=== PATIENT | male | born 1955 | race Caucasian/White ===

== ENCOUNTER 2022-05-25 09:03 | Outpatient (REF) | payer MEDICARE, SELFPAY ==
[2022-05-25 12:14] LABS: Creatinine Urine 209.03 mg/dL; Microalbum/Creatinine Ratio Ur 7.1 ug/mg cr
[2022-05-25 14:18] LABS: Aspartate Amino Transferase 24 U/L (5-37); Blood Urea Nitrogen 14 mg/dL (9-16); Calcium 9.8 mg/dL (8.4-10.2); Chloride 102 mmol/L (96-108); Estimated Glomerular Filt Rate > 60; Glucose Fasting 137 mg/dL (60-99); Potassium 4.4 mmol/L (3.3-5.1); Sodium 141 mmol/L (135-145)
[2022-05-25 14:36] LABS: Alanine Aminotransferase 28 U/L (0-40); Anion Gap 19 (12-20); Carbon Dioxide 24 mmol/L (22-29); Cholesterol 215 mg/dL; HDL Cholesterol 59 mg/dL; LDL Cholesterol Calculated 137 mg/dl; Triglycerides 95 mg/dL
[2022-05-25 14:47] LABS: PSA,Total (Free>4and<10) 0.41 ng/mL (0.00-4.00)
== END 2022-05-25 09:04 | disposition home or self-care (01) ==
LOC: HO.HMGCLDS 09:03
PROVIDERS: PCP Internal Medicine; Visit Provider Internal Medicine
DX: E11.9 Type 2 diabetes mellitus without complications (principal); E78.5 Hyperlipidemia, unspecified; Z12.5 Encounter for screening for malignant neoplasm of prostate
CPT/HCPCS: 36415; 80048; 80061; 82043; 84153; 84450; 84460

== ENCOUNTER 2022-07-12 08:58 | Outpatient (REF) | payer MEDICARE, SELFPAY ==
[2022-07-13 09:02] LABS: C Peptide 2.33 ng/mL (0.80-3.85)
== END 2022-07-12 08:59 | disposition home or self-care (01) ==
LOC: HO.HMGCLDS 08:58
PROVIDERS: PCP Internal Medicine; Visit Provider Internal Medicine
DX: E11.9 Type 2 diabetes mellitus without complications (principal)
CPT/HCPCS: 36415; 84681

== ENCOUNTER 2022-08-25 06:30 | Outpatient (REF) | payer MEDICARE, SELFPAY ==
[2022-08-25 11:55] LABS: Estimated Average Glucose 111 mg/dL; Hemoglobin A1c % 5.5 %
[2022-08-25 11:57] LABS: Alanine Aminotransferase 34 U/L (0-40); Aspartate Amino Transferase 23 U/L (5-37); Cholesterol 191 mg/dL; HDL Cholesterol 59 mg/dL; LDL Cholesterol Calculated 111 mg/dl; Triglycerides 109 mg/dL
== END 2022-08-25 06:31 | disposition home or self-care (01) ==
LOC: HO.HMGCLDS 06:30
PROVIDERS: PCP Internal Medicine; Visit Provider Internal Medicine
DX: E11.9 Type 2 diabetes mellitus without complications (principal); E78.5 Hyperlipidemia, unspecified
CPT/HCPCS: 36415; 80061; 82550; 83036; 84450; 84460

== ENCOUNTER 2023-05-01 10:44 | Outpatient (AMB) | payer BC, SELFPAY ==
[2023-05-01 11:06] VITALS: BP 122/76; PULSE 93; O2SAT 99; BMI 23.2
--- NOTE | 2023-05-01 11:06 | A.OFFPC_ITS ---
Vital Signs 05/01/23 11:06 Height 6 ft Weight 171 lb 4 oz BMI 23.2 BP 122/76 Blood Pressure Location Rt brachial Position Sitting Pulse 93 Pulse Source Pulse Oximeter Pulse Oximetry (%) 99 Oxygen Delivery Method Room Air Intake Visit Reasons: Annual PE Intake Note: Pt is here for his Annual PE. Allergies No Known Allergies Allergy (Verified 05/01/23 11:46) Medication List - Last Reconciled 05/01/23 by Tsering Munoz MD blood sugar diagnostic (FreeStyle Lite Strips) Check blood sugar once daily before meals Tobacco use date assessed: 05/01/23 Fall risk assessment: No Falls in past year Last assessed Fall Risk: 05/01/23 Dental Screening Dental Screen Date: 05/01/23 Did you have a dental problem in the last 6 months where you did not have access to dental care?: No Was dental information given to patient?: No HPI Annual PE HPI Details 67-year-old male with diabetes mellitus, history of dyslipidemia, here today for his physical exam patient currently not on any medications at present time and controlled is blood sugar levels and cholesterol through diet and exercise. Has changed his eating habits and is now consuming a being diet exclusively, and has been exercising regularly. He has been feeling well with no complaints at present time. [facility] Medical History (Updated 05/01/23 @ 17:41 by Tsering Munoz MD) Consumes a vegan diet Controlled diabetes mellitus type II without complication Dyslipidemia Tubular adenoma of colon Surgical History (Updated 05/01/23 @ 17:41 by Tsering Munoz MD) No pertinent past surgical history Family History Father Non-Hodgkins lymphoma Psoriasis Paternal Uncle Non-Hodgkins lymphoma Social History (Updated 05/01/23 @ 17:45 by Tsering Munoz MD) Housing: House Alcohol intake: former Patient Tobacco Use Status: Former Tobacco user Tobacco use type: Cigar e-Cigarette/Vaping Use: Never Used service: No Current occupational status: retired Cognitive needs: No Hearing needs: No Vision needs: Yes Questionnaire PHQ-9 Over the last 2 weeks, how often have you been bothered by any of the following problems? 1. Little interest or pleasure in doing things: not at all 2. Feeling down, depressed, or hopeless: not at all 3. Trouble falling or staying asleep, or sleeping too much: not at all 4. Feeling tired or having little energy: not at all 5. Poor appetite or overeating: not at all 6. Feeling bad about yourself - or that you are a failure or have let yourself or your family down: not at all 7. Trouble concentrating on things, such as reading the newspaper or watching television: not at all 8. Moving or speaking so slowly that other people could have noticed. Or the opposite - being so fidgety or restless that you have been moving around a lot more than usual: not at all 9. Thoughts that you would be better off or of hurting yourself in some way: not at all Total score: 0 Depression Screening Interpretation: Negative 83012 - PHQ-9 Billing: Yes Source: Developed by Drs. Victoriano Mcghee, Josefina Escobar, Chavez Francis and colleagues, with an educational ana from [employer]. Thrive Questionnaire Date Thrive assessed: 05/01/23 I am a: Patient What is your living situation today?: I have a steady place to live Within the past 12 months, did the food you bought not last and you didn't have the money to get more?: Never true Within the past 12 months, did you worry whether your food would run out before you got money to buy more?: Never true Do you have trouble paying for medicines?: No Do you have trouble getting transportation to medical appointments?: No Do you have trouble paying your heating and electricity bill?: No Do you have trouble taking care of your child, family member or friend?: No Do you have trouble with day-to-day activities such as bathing, preparing meals, shopping, managing finances, etc.?: No Are you currently unemployed and looking for a job?: No Are you interested in more education?: No AUDIT C Alcohol Use Questionnaire (AUDIT-C) 1. How often do you have a drink containing alcohol?: Never (former) 2. How many drinks containing alcohol do you have on a typical day when you are drinking?: 1 or 2 3. How often do you have six or more drinks on one occasion?: Never Total Score: 0 Score Reviewed/Action Taken: Yes TAYE-7 AMB Questionnaire TAYE-7 Date TAYE - 7 assessed: 09/15/22 Source: Developed by Drs. Victoriano Mcghee, Josefina Escobar, Chavez Francis and colleagues, with an educational ana from [employer]. Review of Systems Const Denies body aches, Denies fatigue, Denies fever(s), Denies headache(s) and Denies weakness Eyes Denies change in vision ENT Denies dizziness, Denies headache(s), Denies nasal congestion and Denies nasal discharge Card Denies chest pain, Denies lightheadedness, Denies palpitations and Denies dyspnea Resp Denies chest congestion, Denies cough, Denies dyspnea and Denies wheezing GI Denies abdominal pain, Denies change in bowel habits and Denies heartburn Denies hematuria, Denies difficulty urinating, Denies dysuria, Denies urinary frequency and Denies urinary urgency Musc Reports no additional complaints Skin/Breast Denies lesions and Denies rash Neuro Denies dizziness, Denies headache(s) and Denies weakness Psych Reports no additional complaints Endo Denies fatigue, Denies polydipsia, Denies polyuria and Denies palpitations Meng/Lymph Denies easy bruising Aller/Immun Denies seasonal rhinorrhea and Denies wheezing Physical exam (Primary Care) Vital Signs: Last Vital Signs Pulse 93 05/01/23 11:06 BP 122/76 05/01/23 11:06 Pulse Ox 99 05/01/23 11:06 Oxygen Delivery Method Room Air 05/01/23 11:06 BMI result Body Mass Index 23.2 Tobacco/Smoking Status: Tobacco use Status Tobacco use date assessed 05/01/23 05/01/23 11:07 Patient Tobacco Use Status Current everyday Tobacco 05/01/23 11:07 Tobacco use type Cigar 05/01/23 11:07 e-Cigarette/Vaping Use Never Used 05/01/23 11:07 Depression Screening Interpretation: Negative Thrive Assessment: Date of Thrive Assessment Date Thrive assessed 05/25/22 05/01/23 11:07 Const Other: Alert oriented x3 no acute distress noted Orientation/consciousness: patient oriented x3 HENMT Ears: hearing grossly normal bilaterally, external ears normal and EAC's normal General nose exam: Normal external nose present and No nasal discharge present Mouth: Normal oral and palatal mucosa present, oropharynx normal and moist mucous membranes Eyes General: appearance normal, both eyes and all related structures Eyelids: Yes eyelids normal Conjunctivae: conjunctivae normal Pupils: Equal, round and reactive pupils present EOM: EOMs intact bilaterally Neck Neck: Yes full ROM, Yes no lymphadenopathy and Yes supple Chest Chest palpation & inspection: normal inspection of the chest and normal palpation of entire chest wall Resp Effort & Inspection: normal respiratory effort and able to speak in complete sentences Auscultation: clear to auscultation bilaterally Cardio Rate: regular rate Rhythm: regular rhythm Heart sounds: S1 normal heart sound present and S2 normal heart sound present GI Palpation (GI): Soft to palpation, nontender, no guarding and no masses Male General Exam: Yes normal external exam Back/Spine/Pelvis Cervical Spine: normal cervical lordosis and cervical ROM normal Thoracic/Lumbar Spine: thoracic and lumbar spine normal to inspection and thoraco-lumbar ROM normal Skin General skin exam: no rashes or lesions noted Neuro General: patient oriented x3, gait normal, tone normal, moves all extremities, Normal light touch and pain sensation and CN's II-XI intact bilaterally Cranial nerves: Yes Equal, round and reactive pupils present Extrem General: Yes full ROM, Yes no joint enlargement, Yes no clubbing, cyanosis or edema, Yes no calf tenderness and Yes normal gait Psych Appearance: grossly normal Mental Status: mental status grossly normal Speech and movement: Normal speech and movement present Affect: normal affect Attitude: cooperative Thought process: Normal thought process present Thought content: Normal thought content present Immunizations pneumoc 20-fabrice conj-dip cr(PF) Performing Provider: Tsering Munoz MD Administered by: Melo Brock CMA on 05/01/23 12:14 Dose Route Admin Location Lot Number Expiration Date NDC [employer] 0.5 mL IM Right Deltoid [id number] 07/11/24 5025-2075-70 [employer] VIS Given Date VIS Provided VIS Publication Date 05/01/23 Single Vaccine 21 Eligibility Eligibility Date Funding Source Not [facility] Eligible 05/01/23 Private Assessment and Plan Assessment & Plan (1) Dyslipidemia: Code(s): E78.5 - Hyperlipidemia, unspecified Plan: Continue with adhering to healthy eating habits and getting regular exercise, fasting lipid panel ordered (2) Controlled diabetes mellitus type II without complication: Code(s): E11.9 - Type 2 diabetes mellitus without complications Plan: Hemoglobin A1c, basic metabolic panel and urine for microalbuminuria screening ordered. Date with his eye exam. Continue with adhering to healthy eating habits and getting regular exercise. Prevnar 20 given today, reminded to get his flu shot yearly (3) Annual visit for general adult medical examination with abnormal findings: Code(s): Z00.01 - Encounter for general adult medical examination with abnormal findings Plan: Will check appropriate labs. Recommended dental visit every 6 months and regular eye exams once a year for diabetes eye screen.. Take adequate calcium in diet and vitamin-D 3 at 2000 IU per cap once a day, in addition to weight- bearing exercises to help maintain good muscle tone and weight control. Instructed to do self-testicular exam check for any mass. Prevnar 20 given today, reminded to get yearly flu vaccine get COVID booster. He is up-to-date with screening colonoscopy due again in 2028 (4) Screening for prostate cancer: Code(s): Z12.5 - Encounter for screening for malignant neoplasm of prostate Plan: Ordered PSA level (5) Consumes a vegan diet: Code(s): Z78.9 - Other specified health status Plan: Will check vitamin B12 vitamin-D level and hemoglobin hematocrit (6) Need for pneumococcal 20-valent conjugate vaccination: Code(s): Z23 - Encounter for immunization Plan: Prevnar 20 given today Orders: Orders Vitamin B12 and Folate Today E11.9 - Type 2 diabetes mellitus without complications, E78.5 - Hyperlipidemia, unspecified, Z00.01 - Encounter for general adult medical examination with abnormal findings, Z78.9 - Other specified health status Comprehensive Arnett. Panel Fast Today E11.9 - Type 2 diabetes mellitus without complications, E78.5 - Hyperlipidemia, unspecified, Z00.01 - Encounter for general adult medical examination with abnormal findings, Z12.5 - Encounter for screening for malignant neoplasm of prostate Hemoglobin A1c Today E11.9 - Type 2 diabetes mellitus without complications, E78.5 - Hyperlipidemia, unspecified, Z00.01 - Encounter for general adult medical examination with abnormal findings, Z12.5 - Encounter for screening for malignant neoplasm of prostate Lipid Panel Today E11.9 - Type 2 diabetes mellitus without complications, E78.5 - Hyperlipidemia, unspecified, Z00.01 - Encounter for general adult medical examination with abnormal findings, Z12.5 - Encounter for screening for malignant neoplasm of prostate PSA,Total (Free>4and<10) Today E11.9 - Type 2 diabetes mellitus without complications, E78.5 - Hyperlipidemia, unspecified, Z00.01 - Encounter for general adult medical examination with abnormal findings, Z12.5 - Encounter for screening for malignant neoplasm of prostate Vitamin D 25-OH Total Today E11.9 - Type 2 diabetes mellitus without complications, E78.5 - Hyperlipidemia, unspecified, Z00.01 - Encounter for general adult medical examination with abnormal findings, Z12.5 - Encounter for screening for malignant neoplasm of prostate Microalbumin, Random (w Creat) Today E11.9 - Type 2 diabetes mellitus without complications, E78.5 - Hyperlipidemia, unspecified, Z00.01 - Encounter for general adult medical examination with abnormal findings, Z12.5 - Encounter for screening for malignant neoplasm of prostate Hemoglobin and Hematocrit Today E11.9 - Type 2 diabetes mellitus without complications, E78.5 - Hyperlipidemia, unspecified, Z00.01 - Encounter for general adult medical examination with abnormal findings, Z12.5 - Encounter for screening for malignant neoplasm of prostate Pneumococcal 20 Immunization Today Z23 - Encounter for immunization Coding Level of Care Code Est Pt Prev Care >65y(28265) Diagnoses Dyslipidemia E78.5 Controlled diabetes mellitus type II without complication E11.9 Annual visit for general adult medical examination with abnormal findings Z00.01 Screening for prostate cancer Z12.5 Consumes a vegan diet Z78.9 Need for pneumococcal 20-valent conjugate vaccination Z23
== END 2023-05-01 12:31 | disposition home or self-care (01) ==
PROVIDERS: PCP Internal Medicine; Visit Provider Internal Medicine
DX: Z00.00 Encounter for general adult medical examination without abnormal findings (principal); E11.9 Type 2 diabetes mellitus without complications; E78.5 Hyperlipidemia, unspecified; Z23 Encounter for immunization
CPT/HCPCS: 90471; 90677; 99397

== ENCOUNTER 2023-05-02 06:51 | Outpatient (REF) | payer BC, SELFPAY ==
[2023-05-02 11:32] LABS: Hematocrit 40.4 % (42.0-52.0); Hemoglobin 14.1 g/dl (14.0-18.0)
[2023-05-02 11:40] LABS: Estimated Average Glucose 108 mg/dL; Hemoglobin A1c % 5.4 % (<6.0); Microalbum/Creatinine Ratio Ur 5.1 ug/mg cr (<30)
[2023-05-02 11:59] LABS: Alanine Aminotransferase 25 U/L (0-40); Albumin Level 4.5 g/dL (3.5-5.0); Alkaline Phosphatase 46 U/L (39-117); Anion Gap 14 (12-20); Aspartate Amino Transferase 25 U/L (5-37); Bilirubin Total 0.8 mg/dL (0.0-1.0); Blood Urea Nitrogen 11 mg/dL (9-16); Calcium 9.8 mg/dL (8.4-10.2); Carbon Dioxide 26 mmol/L (22-29); Chloride 105 mmol/L (96-108); Cholesterol 205 mg/dL (<200); Estimated Glomerular Filt Rate > 60; Glucose Fasting 108 mg/dL (60-99); HDL Cholesterol 63 mg/dL (>40); LDL Cholesterol Calculated 116 mg/dL (<100); Potassium 4.3 mmol/L (3.3-5.1); Sodium 141 mmol/L (135-145); Triglycerides 130 mg/dL (<150)
[2023-05-02 12:00] LABS: PSA,Total (Free>4and<10) 0.44 ng/mL (0.00-4.00)
[2023-05-02 12:03] LABS: Vitamin D 25-OH Total 55.7 ng/mL (>30)
[2023-05-02 12:15] LABS: Folate 14.1 ng/mL (> or = 4.0); Vitamin B12 601 pg/mL (200-900)
== END 2023-05-02 06:52 | disposition home or self-care (01) ==
LOC: HO.HMGCLDS 06:51
PROVIDERS: PCP Internal Medicine; Visit Provider Internal Medicine
DX: E78.5 Hyperlipidemia, unspecified (principal); E11.9 Type 2 diabetes mellitus without complications; Z00.01 Encounter for general adult medical examination with abnormal findings; Z12.5 Encounter for screening for malignant neoplasm of prostate
CPT/HCPCS: 36415; 80053; 80061; 82043; 82306; 82607; 82746; 83036; 84153; 85014; 85018

== ENCOUNTER 2024-08-21 08:18 | Outpatient (REF) | payer BC, SELFPAY ==
[2024-08-21 13:33] LABS: Estimated Average Glucose 123 mg/dL; Hemoglobin A1C 144.5151 umol/L; Hemoglobin A1c % 5.9 % (<6.0); Total Hemoglobin (HGBA1C) 3521.6836 umol/L
[2024-08-21 13:53] LABS: Creatinine Urine 145.15 mg/dL; Microalbum/Creatinine Ratio Ur 6.2 ug/mg cr (<30)
[2024-08-21 13:56] LABS: Alanine Aminotransferase 30 U/L (0-40); Anion Gap 14 (12-20); Aspartate Amino Transferase 30 U/L (5-37); Blood Urea Nitrogen 11 mg/dL (9-16); Carbon Dioxide 28 mmol/L (22-29); Chloride 102 mmol/L (96-108); Cholesterol 214 mg/dL (<200); Estimated Glomerular Filt Rate > 60; Glucose Fasting 128 mg/dL (60-99); HDL Cholesterol 62 mg/dL (>40); LDL Cholesterol Calculated 123 mg/dL (<100); Potassium 4.3 mmol/L (3.3-5.1); Sodium 140 mmol/L (135-145); Triglycerides 146 mg/dL (<150)
[2024-08-21 14:05] LABS: PSA,Total (Free>4and<10) 0.57 ng/mL (0.00-4.00)
[2024-08-21 14:14] LABS: Vitamin D 25-OH Total 34.4 ng/mL (>30)
== END 2024-08-21 08:19 | disposition home or self-care (01) ==
LOC: HO.HMGCLDS 08:18
PROVIDERS: PCP Internal Medicine; Visit Provider Internal Medicine
DX: Z00.01 Encounter for general adult medical examination with abnormal findings (principal); E78.5 Hyperlipidemia, unspecified; E11.9 Type 2 diabetes mellitus without complications; Z12.5 Encounter for screening for malignant neoplasm of prostate
CPT/HCPCS: 36415; 80048; 80061; 82043; 82306; 82570; 83036; 84153; 84450; 84460; 96127

== ENCOUNTER 2024-08-21 08:18 | Outpatient (AMB) | payer BC, SELFPAY ==
--- NOTE | 2024-08-21 08:24 | MHC.PC.OV ---
Vital Signs 08/21/24 08:35 Height 6 ft Weight 179 lb BMI 24.3 BP 132/70 Blood Pressure Location Lt brachial Position Sitting Pulse 88 Pulse Source Pulse Oximeter Pulse Oximetry (%) 98 Oxygen Delivery Method Room Air Intake Visit Reasons: PE Intake Note: Pt is here today for his PE:Last colonoscopy 02/27/19: Pt has an appt next week for his colonoscopy Allergies No Known Allergies Allergy (Verified 08/21/24 08:48) Medication List - Last Reconciled 08/21/24 by Tsering Munoz MD blood sugar diagnostic (FreeStyle Lite Strips) Check blood sugar once daily before meals lancets (FreeStyle Lancets) test blood sugar once a day Tobacco use date assessed: 08/21/24 Fall risk assessment: No Falls in past year Last assessed Fall Risk: 08/21/24 Dental Screening Dental Screen Date: 08/21/24 Did you have a dental visit in the last 12 months?: Yes Did you have a dental problem in the last 6 months where you did not have access to dental care?: No Was dental information given to patient?: Patient has dentist HPI PE HPI Details - The patient is a 68-year-old male presenting for his physical examination and management of chronic conditions. - Type 2 Diabetes Mellitus: Diagnosed previously, with the last HbA1c noted at 6di.1% Patient manages diabetes through diet control and has lost significant weight, from 215 lbs to about 175 lbs -negative for urine microalbuminuria - Diastasis Recti: Present, self-reports no symptoms except occasional discomfort and sensation of pressure when doing sit-ups. - Heartburn: Occasionally experiences discomfort, linked to certain foods like marinara sauce. No medications reported for symptom management. 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 No severe functional limitation currently. - Cataracts: Beginning in the both eyes, goes to [facility] , seen this year, without current complications; no retinopathy according to recent exams. - scheduled foa repeat screening colonoscopy on 08/28/[address] Jamison. - up to date with all vaccines , but declined Covid booster or RSV . - has cerumen impaction, no hearing deficits, patient sometimes using Waterpik to flush ears. [facility] Medical History (Updated 12/11/24 @ 09:26 by Tsering Munoz MD) Hx of adenomatous polyp of colon Tubular adenoma of colon Dyslipidemia Controlled diabetes mellitus type II without complication Surgical History No pertinent past surgical history Family History Father Non-Hodgkins lymphoma Psoriasis Paternal Uncle Non-Hodgkins lymphoma Social History Housing: House Alcohol intake: former Patient Tobacco Use Status: Former Tobacco user Tobacco use type: Cigar e-Cigarette/Vaping Use: Never Used service: No Current occupational status: retired Cognitive needs: No Hearing needs: No Vision needs: Yes Questionnaire PHQ-9 Over the last 2 weeks, how often have you been bothered by any of the following problems? 1. Little interest or pleasure in doing things: not at all 2. Feeling down, depressed, or hopeless: not at all 3. Trouble falling or staying asleep, or sleeping too much: not at all 4. Feeling tired or having little energy: not at all 5. Poor appetite or overeating: not at all 6. Feeling bad about yourself - or that you are a failure or have let yourself or your family down: not at all 7. Trouble concentrating on things, such as reading the newspaper or watching television: not at all 8. Moving or speaking so slowly that other people could have noticed. Or the opposite - being so fidgety or restless that you have been moving around a lot more than usual: not at all 9. Thoughts that you would be better off or of hurting yourself in some way: not at all Total score: 0 Depression Screening Interpretation: Negative Depression Screening Done: Yes 83746 - PHQ-9 Billing: Yes Source: Developed by Drs. Victoriano Mcghee, Josefina Escobar, Chavez Francis and colleagues, with an educational ana from [employer]. Thrive Questionnaire Date Thrive assessed: 08/16/24 I am a: Patient What is your living situation today?: I have a steady place to live Within the past 12 months, did the food you bought not last and you didn't have the money to get more?: Never true Within the past 12 months, did you worry whether your food would run out before you got money to buy more?: Never true Do you have trouble paying for medicines?: No Do you have trouble getting transportation to medical appointments?: No Do you have trouble paying your heating and electricity bill?: No Do you have trouble taking care of your child, family member or friend?: No Do you have trouble with day-to-day activities such as bathing, preparing meals, shopping, managing finances, etc.?: No Are you currently unemployed and looking for a job?: No Are you interested in more education?: No Please select the resources that you would like help with: None Currently or been in a relationship where the following occur: No concerns reported THRIVE Score: 0 AUDIT C Alcohol Use Questionnaire (AUDIT-C) 1. How often do you have a drink containing alcohol?: Monthly or less 2. How many drinks containing alcohol do you have on a typical day when you are drinking?: 1 or 2 3. How often do you have six or more drinks on one occasion?: Never Total Score: 1 TAYE-7 AMB Questionnaire TAYE-7 Date TAYE - 7 assessed: 09/15/22 Feeling nervous, anxious, or on edge: 0 = Not at all Not being able to stop or control worryin = Not at all Worrying too much about different things: 0 = Not at all Trouble relaxin = Not at all Being so restless that it is hard to sit still: 0 = Not at all Becoming easily annoyed or irritable: 0 = Not at all Feeling afraid as if something awful might happen: 0 = Not at all Total TAYE-7 score (0-4 normal; 5-9 mild; 10-14 moderate; 15-21 severe): 0 Source: Developed by Drs. Victoriano Mcghee, Josefina Escobar, Chavez Francis and colleagues, with an educational ana from [employer]. TAYE-7 Assessment Billing TAYE-7 Assessment Tool: TAYE-7 Assessment 87601 Review of Systems Const Denies body aches, Denies fatigue, Denies fever(s), Denies headache(s) and Denies weakness Eyes Details: goes to [facility] , [facility] with retinopathy screening Denies change in vision ENT Denies dizziness, Denies headache(s), Denies nasal congestion and Denies nasal discharge Card Denies chest pain, Denies lightheadedness, Denies palpitations and Denies dyspnea Resp Denies chest congestion, Denies cough, Denies dyspnea and Denies wheezing GI Denies abdominal pain, Denies change in bowel habits and Denies heartburn Denies hematuria, Denies difficulty urinating, Denies dysuria, Denies urinary frequency and Denies urinary urgency Musc Reports no additional complaints Skin/Breast Denies lesions and Denies rash Neuro Denies dizziness, Denies headache(s) and Denies weakness Psych Reports no additional complaints Endo Denies fatigue, Denies polydipsia, Denies polyuria and Denies palpitations Meng/Lymph Denies easy bruising Aller/Immun Denies seasonal rhinorrhea and Denies wheezing Physical exam (Primary Care) Vital Signs: Last Vital Signs Pulse 88 08/21/24 08:35 BP 132/70 08/21/24 08:35 Pulse Ox 98 08/21/24 08:35 Oxygen Delivery Method Room Air 08/21/24 08:35 BMI result Body Mass Index 24.3 Tobacco/Smoking Status: Tobacco use Status Tobacco use date assessed 08/21/24 08/21/24 08:36 Patient Tobacco Use Status Former Tobacco user 08/21/24 08:25 Tobacco use type Cigar 08/21/24 08:25 e-Cigarette/Vaping Use Never Used 08/21/24 08:25 PHQ-9: PHQ-9 Score PHQ-9: Total score 0 08/21/24 08:49 Depression Screening Interpretation: Negative Thrive Assessment: Date of Thrive Assessment Date Thrive assessed 08/16/24 08/21/24 08:25 Currently or been in a relationship where the following occur: No concerns reported Results AMB Hemoglobin A1c AMB Hemoglobin A1c 6.1 % Last Edit by Sigrid Heredia CMA on 08/21/24 08:57 Results Reviewed Results Reviewed: Laboratory Last Values Hgb A1c (Clinic) 6.1 % (4.0-6.0) H 08/21/24 08:48 Coding Level of Care Code Est Pt Prev Care >65y(37168) Diagnoses Controlled diabetes mellitus type II without complication E11.9 Dyslipidemia E78.5 Annual visit for general adult medical examination with abnormal findings Z00.01 Additional Codes PHQ-9 - 20137 - PHQ-9 Billing: Yes ([id number]) TAYE-7 Assessment Billing - TAYE-7 Assessment Tool: TAYE-7 Assessment 63035 ([id number]) Assessment & Plan Assessment & Plan (1) Controlled diabetes mellitus type II without complication: Code(s): E11.9 - Type 2 diabetes mellitus without complications Category: Medical (2) Dyslipidemia: Code(s): E78.5 - Hyperlipidemia, unspecified Category: Medical (3) Annual visit for general adult medical examination with abnormal findings: Code(s): Z00.01 - Encounter for general adult medical examination with abnormal findings Orders: Orders AMB Hemoglobin A1c Today E11.9 - Type 2 diabetes mellitus without complications PSA,Total (Free>4and<10) Today E11.9 - Type 2 diabetes mellitus without complications, E78.5 - Hyperlipidemia, unspecified, Z00.01 - Encounter for general adult medical examination with abnormal findings, Z12.5 - Encounter for screening for malignant neoplasm of prostate Microalbumin, Random (w Creat) Today E11.9 - Type 2 diabetes mellitus without complications, E78.5 - Hyperlipidemia, unspecified, Z00.01 - Encounter for general adult medical examination with abnormal findings, Z12.5 - Encounter for screening for malignant neoplasm of prostate Basic Metabolic Panel Fasting Today E11.9 - Type 2 diabetes mellitus without complications, E78.5 - Hyperlipidemia, unspecified, Z00.01 - Encounter for general adult medical examination with abnormal findings, Z12.5 - Encounter for screening for malignant neoplasm of prostate Alanine Aminotransferase Today E11.9 - Type 2 diabetes mellitus without complications, E78.5 - Hyperlipidemia, unspecified, Z00.01 - Encounter for general adult medical examination with abnormal findings, Z12.5 - Encounter for screening for malignant neoplasm of prostate Vitamin D 25-OH Total Today E11.9 - Type 2 diabetes mellitus without complications, E78.5 - Hyperlipidemia, unspecified, Z00.01 - Encounter for general adult medical examination with abnormal findings, Z12.5 - Encounter for screening for malignant neoplasm of prostate Lipid Panel Today E11.9 - Type 2 diabetes mellitus without complications, E78.5 - Hyperlipidemia, unspecified, Z00.01 - Encounter for general adult medical examination with abnormal findings, Z12.5 - Encounter for screening for malignant neoplasm of prostate Hemoglobin A1c Today E11.9 - Type 2 diabetes mellitus without complications, E78.5 - Hyperlipidemia, unspecified, Z00.01 - Encounter for general adult medical examination with abnormal findings, Z12.5 - Encounter for screening for malignant neoplasm of prostate Aspartate Amino Transferase Today E11.9 - Type 2 diabetes mellitus without complications, E78.5 - Hyperlipidemia, unspecified, Z00.01 - Encounter for general adult medical examination with abnormal findings, Z12.5 - Encounter for screening for malignant neoplasm of prostate
[2024-08-21 08:35] VITALS: BP 132/70; PULSE 88; O2SAT 98; BMI 24.3
--- OUTSIDE RECORDS SUMMARY | 2024-08-21 23:02 | XMS_ITS | Patient Health Record ---
Author Organization [facility] Address [address] [place] [address] Care Team Providers Care Customer Accounts Advisor Name Role Phone Tammy VEGAS, Tsering Primary Care Provider Victoriano Hodgson Unavailable [phone] ALLERGIES No Known Allergies REASON FOR REFERRAL No Information IMMUNIZATIONS Vaccine Route Administration Date Status Comme nts Influenza Unknown 06/27/2018 Administered SOCIAL HISTORY Tobacco Use: Social History Observation Description Date Details (start date - stop date) Former Smoker NA - NA Sex Assigned At : Social History Observation Description Sex Assigned At Unknown Tobacco Use/Smoking Question Answer Notes Patient is a former smoker How long has it been since you last smoked? 1-5 years Alcohol Screen Question Answer Notes Did you have a drink contain ing alcohol in the past year? Yes How often did you have a dri nk containing alcohol in the past year? 4 or more times a week (4 points) How many drinks did you have on a typical day when you were drinking in the past year? 1 or 2 drinks (0 point) How often did you have 6 or more drinks on one occasion in the past year? Weekly (3 points) Points 7 Interpretation Positive PROBLEMS Problem Type ICD Code Onset Dates Problem Status W/U Status Risk SNOMED Code Notes Problem Encounter for screening for malignant neoplasm of colon (Z12.11) Active confirmed 262299351 Problem Hx of adenomatous colonic polyps (Z86.010) Active confirmed 533760182 Problem Pre-procedural examination (Z01.818) Active confirmed 442458349318400 VITAL SIGNS Blood pressure diastolic 00 mm Hg 05/16/2024 Height 72 in 05/16/2024 Blood pressure systolic 00 mm Hg 05/16/2024 Weight 172 lbs 05/16/2024 BMI 23.32 kg/m2 05/16/2024 Encounters Encounter Location Date Provider Diagnosis [facility] [address] [place] [address] 05/16/2024 Victoriano Jamison Hx of adenomatous colonic polyps Z86.010 ; Pre-procedural examination Z01.818 and Encounter for screening for malignant neoplasm of colon Z12.11 ASSESSMENTS Encounter Date Diagnosis Assessment Notes Treatment Notes Treatment Clinical Notes 05/16/2024 Hx of adenomatous colonic polyps (ICD-10 - Z86.010) 05/16/2024 Pre-procedural examination (ICD-10 - Z01.818) 05/16/2024 Encounter for screening for malignant neoplasm of colon (ICD-10 - Z12.11) PLAN OF TREATMENT Future Test Test Name Order Date COLONOSCOPY 11/15/2012 COLONOSCOPY 11/20/2018 COLONOSCOPY 05/16/2024 Next Appt Details Provider Name:Victoriano Rudd Jamison , 08/28/2024 08:30:00 AM, [address] [facility] , [place], [place], [phone], Insurance Providers Payer Name Payer Address Payer Phone Subscriber Number Group Number Insured Name Patient Relationship to Insured Coverage Start Date Coverage End Date [facility] [address] [place] [address] [id number] TYRA ENGLISH Self - patient is the insured MEDICAL (GENERAL) HISTORY Medical History History ICD Code Hx of tubular adenoma and hy perplastic polyps-removed in 01/2008, 01/2013, and 02/2019 Diverticulosis Internal hemorrhoids Denies [place],CVA,Lung disease,renal disease Diet-controlled diabetes Surgical History Surgery Date(Month/Year) Vasectomy
--- OUTSIDE RECORDS SUMMARY | 2024-08-21 23:02 | XMS_ITS ---
Author Organization [facility] Address [address] [place] [address] Care Team Providers Care Business Development Intern Name Role Phone Tammy VEGAS, Tsering Primary Care Provider Victoriano Hodgson [phone] ALLERGIES No Known Allergies REASON FOR VISIT Patient presents today for a recall colonoscopy SOCIAL HISTORY Tobacco Use: Social History Observation [...] Weekly (3 points) Points 7 Interpretation Positive VITAL SIGNS BMI 23.32 kg/m2 05/16/2024 Blood pressure systolic 00 mm Hg 05/16/20 24 Blood pressure diastolic 00 mm Hg 024 Height 72 in 05/16/2024 Weight 172 lbs 05/16/2024 Encounters Encounter Location Date Provider Diagnosis [facility] [address] [place] [phone] 05/16/2024 Victoriano Jamison Hx of adenomatous colonic [...] Future Test Test Name Order Date COLONOSCOPY 05/16/2024 Next Appt Details Follow Up: prn, Reason: Provider Name:Victoriano Jamison , 08/28/2024 08:30:00 AM, [address] [place] [address], [phone], Progress Notes * Examination Category Sub-Category Detail Notes General Examination GENERAL APPEARANCE: pleasant , well nourished, well developed, in no acute distress EYES: sclera non-icteric NECK/THYROID: no cervical lymphade nopathy, neck supple HEART: S1, S2 normal LUNGS: clear to auscultatio n bilaterally ABDOMEN: normal bowel sounds, no guarding or rigidity, no hepatosplenomegaly, no masses palpable, soft, nontender, nondistended. NEUROLOGIC: alert and oriented SKIN: nonjaundiced, no spi moises angiomata. EXTREMITIES: no edema ORAL CAVITY: mucosa moist
== END 2024-08-21 09:22 | disposition home or self-care (01) ==
PROVIDERS: PCP Internal Medicine; Visit Provider Internal Medicine
DX: E11.9 Type 2 diabetes mellitus without complications (principal)

== ENCOUNTER 2024-08-28 06:14 | Day surgery (SDC) | payer MEDICARE, SELFPAY ==
[2024-08-26 13:23] VITALS: BMI 23.3
--- NOTE | 2024-08-27 12:54 | HO.ANESPROP2 ---
Documented by User: Tiffany Da Silva NP 08/27/24 12:55 HPI - Anesthesia Eval Consult details Narrative: 68yo M for Colonoscopy PMF Active Problems Active Problems: All Active Problems Hx of adenomatous polyp of colon (Acute) Dyslipidemia (Acute) Controlled diabetes mellitus type II without complication (Acute) Past Medical History Medical History Diverticulosis Hx of adenomatous polyp of colon Tubular adenoma of colon Dyslipidemia Controlled diabetes mellitus type II without complication Family History Family History Father Non-Hodgkins lymphoma Psoriasis Paternal Uncle Non-Hodgkins lymphoma Surgical History Surgical History H/O colonoscopy Hx of vasectomy Social History Social History Household Members: Spouse Housing: House Alcohol intake: former Patient Tobacco Use Status: Former Tobacco user Tobacco use type: Cigar e-Cigarette/Vaping Use: Never Used Use of substances other than those prescribed or required for medical reasons: No Are you DNR?: No Advance Directives: No Advance Directives Information Provided: Yes Nutrition Risks: No Nutritional Risk Poor oral hygiene: No service: No Current occupational status: retired Cognitive needs: No Hearing needs: No Vision needs: Yes Meds Allergies Allergy/AdvReac Type Severity Reaction Status Date / Time No Known Allergies Allergy Verified 08/21/24 08:48 Exam Height,Weight and Vital Signs: Height 6 ft Weight 78.018 kg Assessment and Plan Assessment Anesthesia Assessment: Chart Reviewed Documented by User: Antonia Nassar MD 08/28/24 07:38 PMFSH Past Medical History Medical History Diverticulosis Hx of adenomatous polyp of colon Tubular adenoma of colon Dyslipidemia Controlled diabetes mellitus type II without complication Family History Family History Father Non-Hodgkins lymphoma Psoriasis Paternal Uncle Non-Hodgkins lymphoma Family history of problems with anesthesia: No Surgical History Surgical History H/O colonoscopy Hx of vasectomy History of Problems with Anesthesia: No Social History Social History Household Members: Spouse Housing: House Alcohol intake: former Patient Tobacco Use Status: Former Tobacco user Tobacco use type: Cigar e-Cigarette/Vaping Use: Never Used Use of substances other than those prescribed or required for medical reasons: No Are you DNR?: No Advance Directives: No Advance Directives Information Provided: Yes Nutrition Risks: No Nutritional Risk Poor oral hygiene: No service: No Current occupational status: retired Cognitive needs: No Hearing needs: No Vision needs: Yes Meds Allergies Allergy/AdvReac Type Severity Reaction Status Date / Time No Known Allergies Allergy Verified 08/21/24 08:48 Exam Airway Mallampati Class: II TM Dist: >3cm Neck ROM: Full Heart: rrr Lungs: cta Assessment and Plan Assessment Anesthesia Assessment: Anesthesia Plan Discussed Final Anesthetic Review Family History of Problems with Anesthesia: No History of Problems with Anesthesia: No NPO: Yes ASA Class: II Final Preanesthetic Review: No Changes in Pt Med Stat, Meds/Allgs Chart Reviewed, Consent Obtained/Reviewed and Anes Risks/Benef Reviewed Patient Risk: Intermediate Procedure Risk: Low Anesthetic Plan Anesthetic Plan: MAC: Disposition: Standard PACU
--- OUTSIDE RECORDS SUMMARY | 2024-08-28 06:16 | XMS_ITS ---
Author Organization [facility] Address [address] [place] [address] Care Team Providers Care Business Developer Name Role Phone Tammy VEGAS, Tsering Primary Care Provider Victoirano Hodgson [phone] REASON FOR VISIT screening,hx polyps Encounters Encounter Location Date Provider Diagnosis [facility] [place] [address] [place] [id number] 08/28/2024 Victoriano Jamison PLAN OF TREATMENT Next Appt Details Provider Name:Victoirano Jamison , 08/28/2024 07:30:00 AM, [address] [place] [address], [phone],
--- OUTSIDE RECORDS SUMMARY | 2024-08-28 06:16 | XMS_ITS | Patient Health Record ---
Author Organization [facility] Address [address] [place] [address] Care Team Providers Care Mail Service Coordinator Name Role Phone Tammy VEGAS, Tsering Primary Care Provider Victoriano Hodgson Unavailable [phone] ALLERGIES No Known Allergies REASON FOR REFERRAL [...] malignant neoplasm of colon (Z12.11) Active confirmed 425776093 Problem Hx of adenomatous colonic polyps (Z86.010) Active confirmed 570055318 Problem Pre-procedural examination (Z01.818) Active confirmed [id number] VITAL SIGNS Blood pressure diastolic 00 mm Hg 05/16/2024 Height 72 in 05/16/2024 Blood pressure systolic 00 mm Hg 05/16/2024 Weight 172 lbs 05/16/2024 BMI 23.32 kg/m2 05/16/2024 Encounters Encounter Location Date Provider Diagnosis [facility] [place] [address] [place] [id number] 08/28/2024 Victoriano Jamison [facility] [address] [place] [address] 05/16/2024 Victoriano Jamison Hx of adenomatous colonic [...] 05/16/2024 Next Appt Details Provider Name:Victoriano Rudd Jmaison , 08/28/2024 07:30:00 AM, [address] [place] [address] , [place], [place], [phone], Insurance Providers Payer Name Payer Address Payer Phone Subscriber Number Group Number Insured Name Patient Relationship to Insured Coverage Start Date Coverage End Date [facility] [address] [place] [address] [phone] [id number] TYRA ENGLISH Self - patient is the insured MEDICAL (GENERAL) HISTORY Medical History History ICD Code Hx of tubular adenoma and hy perplastic polyps-removed in 01/2008, 01/2013, and 02/2019 Diverticulosis Internal hemorrhoids Denies CT,CVA,Lung disease,renal disease Diet-controlled diabetes Surgical History Surgery Date(Month/Year) Vasectomy
--- OUTSIDE RECORDS SUMMARY | 2024-08-28 06:16 | XMS_ITS ---
Author Organization [facility] Address [address] [place] [address] Care Team Providers Care Dolly Operator Name Role Phone Tammy VEGAS, Tsering Primary Care Provider Victoriano Hodgson [phone] ALLERGIES No Known Allergies REASON FOR VISIT [...] 05/16/2024 Encounters Encounter Location Date Provider Diagnosis [facility] [address] [place] [phone] 05/16/2024 Victoriano Jamison Hx of adenomatous colonic [...] prn, Reason: Provider Name:Victoriano Jamison , 08/28/2024 07:30:00 AM, [address] [place] [address], [phone], Progress Notes * Examination Category Sub-Category Detail [...]
[2024-08-28 06:40] VITALS: BMI 23.7
[2024-08-28 06:45] VITALS: BP 159/82; PULSE 90; RESP 16; TEMP 37; O2SAT 98
[2024-08-28 07:07] LABS: Glucose, Whole Blood 152 mg/dL (60-115)
[2024-08-28] MEDS: Lactated Ringers 1,000 ML 100 ML IVCONT (07:07)
[2024-08-28 08:40] VITALS: BP 89/51; PULSE 75; RESP 16; TEMP 36.1; O2SAT 95
--- NOTE | 2024-08-28 08:45 | PM.OP ---
Brief Operative Note Date of Service: 08/28/24 Pre-op diagnosis: Screening Post-op diagnosis: other (Polyp) Procedure: Colonoscopy to the cecum with cold snare polypectomy x 1 Surgeon: Victoriano Jamison MD Anesthesia: MAC Was an [employer] Wireman used for this Procedure?: No Estimated blood loss (mL): 2.0 Pathology: other (A. Ascending colon polyp) Condition: stable Disposition: PACU
[2024-08-28 08:55] VITALS: BP 111/61; PULSE 82; RESP 16; TEMP 36.2; O2SAT 97
--- NOTE | 2024-08-28 09:04 | OP_ITS ---
DATE OF SERVICE: 08/28/2024 SURGEON: Victoriano Jamison MD INDICATIONS: The patient presents for evaluation of colorectal cancer screening and personal history of tubular adenomas of the colon. Full consent has been obtained from him for this, including risks of bleeding and perforation. PREOPERATIVE DIAGNOSIS: POSTOPERATIVE DIAGNOSIS: PROCEDURE PERFORMED: Colonoscopy to cecum with cold snare polypectomy. ESTIMATED BLOOD LOSS: COMPLICATIONS: ANESTHESIA: Medication used, monitored anesthesia care. ASSISTANTS: SPECIMENS: PREOPERATIVE DIAGNOSES: Colorectal cancer screening and personal history of tubular adenoma of the colon. POSTOPERATIVE DIAGNOSES: Colorectal cancer screening and personal history of tubular adenoma of the colon, colon polyp, diverticulosis, and internal hemorrhoids. DESCRIPTION OF PROCEDURE: The patient was placed in the left lateral decubitus position. The digital rectal exam revealed no abnormalities. The Olympus video pediatric colonoscope was entered into the rectum and advanced easily to the cecum. Once in the cecum, I did identify normal-appearing cecal pouch with appendiceal orifice and a normal-appearing ileocecal valve. The entire cecum was well visualized and appeared normal. There was transillumination of light deep in the right lower quadrant. The scope was slowly withdrawn assessing all mucosal surfaces carefully. Preparation was excellent. The ascending colon was a flat, but raised approximately 5 or 6 mm polyp, which was removed by cold snare polypectomy, recovered by suction. The polypectomy site appeared clean, without any sign of residual polyp nor significant bleeding. I did not visualize any other polyps, colitis, nor angiodysplasia. There was a moderate amount of sigmoid diverticulosis. In the rectum, scope was retroflexed visualizing internal hemorrhoids, but no other pathology. A small portion of the rectum was difficult to visualize due to some retained stool which was irrigated and suctioned away as best as possible. The scope was straightened and withdrawn from the patient. He tolerated the procedure well and was returned to the recovery area in stable condition. IMPRESSION: 1. Small colon polyp. 2. Diverticulosis. 3. Internal hemorrhoids. PLAN: The results of the pathology will be checked. I would recommend a repeat colonoscopy in 5 years for further screening and surveillance. He will otherwise see me on a p.r.n. basis. This has been discussed with his . MD TOO Cacerse/JAIMEL / [id number]
== END 2024-08-28 09:17 | disposition home or self-care (01) ==
PROVIDERS: PCP Internal Medicine; Visit Provider Internal Medicine
PROC: 0DJD8ZZ Inspection of Lower Intestinal Tract, Via Natural or Artificial Opening Endoscopic (ICD-10-PCS; CPT 45378; principal; 2024-08-28 07:30)
DX: Z12.11 Encounter for screening for malignant neoplasm of colon (principal); Z86.0101 Personal history of adenomatous and serrated colon polyps; D12.2 Benign neoplasm of ascending colon; K57.30 Diverticulosis of large intestine without perforation or abscess without bleeding; K64.8 Other hemorrhoids; E11.9 Type 2 diabetes mellitus without complications; Z87.891 Personal history of nicotine dependence
CPT/HCPCS: 45385; 82947; 88305; J2003; J2250; J2704

== ENCOUNTER 2025-08-26 08:02 | Outpatient (AMB) | payer BC, SELFPAY ==
--- OUTSIDE RECORDS SUMMARY | 2024-08-28 02:30 | XMS_ITS ---
Author Organization [facility] Address [address] [place] [address] Care Team Providers Care Communication Engineer Name Role Phone Tammy VEGAS, Tsering Primary Care Provider Victoriano Hodgson [phone] REASON FOR VISIT screening,hx polyps Problems Problem Type SNOMED Code ICD Code Onset Dates Problem Status W/U Status Risk Notes Problem Diverticular disease of colon (353686772) Diverticulosis of large intestine without perforation or abscess without bleeding (K57.30) Active confirmed Encounters Encounter Location Date Provider Diagnosis [facility] [place] [address] [place] [id number] 08/28/2024 Victoriano Jamison Colon cancer scree ramirez Z12.11 ; Diverticulosis of large intestine without perforation or abscess without bleeding K57.30 and Other hemorrhoids K64.8 Assessments Encounter Date Diagnosis (ICD Code) Assessment Notes Treatment Notes Treatment Clinical Notes Section Notes 08/28/2024 Colon cancer screening (ICD-10 - Z12.11) 08/28/2024 Diverticulosis of large intestine without perforation or abscess without bleeding (ICD-10 - K57.30) 08/28/2024 Other hemorrhoids (ICD-10 - K64.8) Plan Of Treatment No Information Progress Notes * TYRA ENGLISH ADOB:1955 (69 yo M)Acc No.[id number]:08/28/2024 COLON WITH MAC Patient: Blaire LINK TYRA Downing Provider: Luana Jamison MD :1955 A ge:68 Y S ex:Male Date:08/28/2024 Address:[address] [place] [address] Pcp:Tsering Munoz MD Subjective: * Chief Complaints: * S creening,hx polyps Assessment: * Assessment: 1. C olon cancer screening - Z12.11 (Primary) 2 . D iverticulosis of large intestine without perforation or abscess without bleeding - K57.30 3 . O ther hemorrhoids - K64.8 Plan: * Procedure Codes: 4 5385 LESION REMOVAL COLONOSCOPY, Modifiers: PT 0529F INTRVL 3+YRS PTS CLNSCP [id number] RCMND FLW-UP 10 YRS DOCD, Modifiers: 1P Billing Information: * Procedure Codes: 48337 LESION REMOVAL COLONOSCOPY. Modifiers: PT 0529F INTRVL 3+YRS PTS CLNSCP DOCD. 0528F RCMND FLW-UP 10 YRS DOCD. Modifiers: 1P * The named appointment provid er may or may not be the originator of this progress note, and it is not deemed complete until electronically signed by the appointment provider. Sign off status: Pending * Provider: Luana Jamison MD Date: 10/29/2023 Generated for Sharona teran/Rupa/Annetteitting on: 10/27/2024 08:13 AM EST
--- OUTSIDE RECORDS SUMMARY | 2025-08-26 08:14 | XMS_ITS | Patient Health Record ---
Author Organization [facility] Address [address] [place] [address] Care Team Providers Care Upstream Biomanufacturing Technician Name Role Phone Tammy VEGAS, Tsering Primary Care Provider Victoriano Hodgson Unavailable [phone] Allergies No Known Allergies Results Component Value Reference Range Flag Notes Glucose, Whole Blood Reviewed date:08/28/2024 01:49:08 PM Interpretation: Performing Lab:[facility], [address] [place] [phone] Notes/Report: Glucose, Whole Blood 152 60-115 mg/dL H VT TER #: [id number] Pathology Reviewed date:12/12/2024 10:57:56 AM Interpretation: Performing Lab:[facility], [address] [place] [phone] Notes/Report: Reason For Referral No Information Immunizations Vaccine Route Administration Date Status Comme nts Influenza Unknown 06/27/2018 Administered Social History Tobacco Use: Social History Observation Description Date Details (start date - stop date) Former Smoker NA - NA Social History Drugs/Alcohol: Social Info Question Answer Notes Alcohol Screen Did you have a drink containing alcohol in the past year? Yes How often did you have a drink containing alcohol in the past year? 4 or more times a week (4 points) How many drinks did you have on a typical day when you were drinking in the past year? 1 or 2 drinks (0 point) How often did you have 6 or more drinks on one occasion in the past year? Weekly (3 points) Points 7 Interpretation Positive Tobacco Use: Social Info Question Answer Notes Tobacco Use/Smoking Patient is a former smoker How long has it been since you last smoked? 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, semi-retired Section Notes: Nonsmoker x 4 years; 1-2 bee rs QD Nonsmoker x 4 years; At least 3-4 shots of whiskey per day Ocassional cigar Nonsmoker x 4 years; At least 3-4 shots of whiskey per day Ocassional cigar Problems Problem Type SNOMED Code ICD Code Onset Dates Problem Status W/U Status Risk Notes Problem Screening for malignant neoplasm of colon (197832873) Encounter for screening for malignant neoplasm of colon (Z12.11) Active confirmed Problem Diverticular disease of colon (044080099) Diverticulosis of large intestine without perforation or abscess without bleeding (K57.30) Active confirmed Problem History of adenomatous polyp of colon (313051956) Hx of adenomatous colonic polyps (Z86.010) Active confirmed Problem Pre-procedure evaluation check (750287376) Pre-procedural examination (Z01.818) Active confirmed Encounters Encounter Location Date Provider Diagnosis [facility] [place] [address] [place] [phone] 08/28/2024 Victoriano Jamison Colon cancer scree ramirez [...] hemorrhoids (ICD-10 - K64.8) Plan Of Treatment Future Test Test Name Order Date COLONOSCOPY 11/15/2012 COLONOSCOPY 11/20/2018 COLONOSCOPY 05/16/2024 Insurance Providers Payer Name Payer Address Payer Phone Subscriber Number Group Number Insured Name Patient Relationship to Insured Coverage Start Date Coverage End Date [facility] [address] [place] [address] [id number] TYRA ENGLISH Self - patient is the insured Medical (General) History Medical History History ICD Code Hx of tubular adenoma and hy perplastic polyps-removed in 01/2008, 01/2013, and 02/2019 Diverticulosis Internal hemorrhoids Denies [place],CVA,Lung disease,renal disease Diet-controlled diabetes Surgical History Surgery Date(Month/Year) Vasectomy
--- OUTSIDE RECORDS SUMMARY | 2025-08-26 08:14 | XMS_ITS | Patient Health Record ---
Author Organization [facility] Address [address] [place] [address] Care Team Providers Care Pot Maker Name Role Phone Ceci Hanna Primary Care Provide r Unavailable AlFreddy doherty Unavailable [phone] Reason For Referral No Information Medications Medication SIG (Take, Route, Fr equency, Duration) Notes Start Date End Date Status Lamisil 250 250 MG 1 Tab Oral Daily; Duration: 90 Active Problems Problem Type SNOMED Code ICD Code Onset Dates Problem Status W/U Status Risk Notes Problem Onychomycosis (469533248) Onychomycosis (110.1) Active confirmed Problem Neuralgia - Neuritis (729.2) Active confirmed Problem Hallux valgus (270733192) Hallux Valgus (735.0) Active confirmed Problem Hammer toe (281429488) Hammer toe (735.4) Active confirmed Problem 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 [address] [facility] [place] [address] [phone] [id number] Sommer Sevilla Spouse - patient is the spouse of the insured Medical (General) History Medical History History ICD Code back, hip, knee pain chicken pox measles
[2025-08-26 08:17] VITALS: BP 126/64; PULSE 95; RESP 16; TEMP 36.6; O2SAT 98; BMI 24.4
--- NOTE | 2025-08-26 08:17 | A.OFFPC_ITS ---
Vital Signs 08/26/25 08:17 Height 6 ft Weight 180 lb BMI 24.4 BP 126/64 Blood Pressure Location Lt brachial Position Sitting Respiration 16 Pulse 95 Pulse Source Pulse Oximeter Temp 97.8 F Temp Source Oral Pulse Oximetry (%) 98 Oxygen Delivery Method Room Air Intake Visit Reasons: PE Intake Note: Pt is here today for his PE: Last colonoscopy 08/28/24 Psychological Science Professor Required: No Allergies No Known Allergies Allergy (Verified 08/26/25 08:18) Tobacco use date assessed: 08/26/25 Fall risk assessment: No Falls in past year Last assessed Fall Risk: 08/26/25 Dental Screening Dental Screen Date: 08/26/25 Did you have a dental visit in the last 12 months?: Yes Did you have a dental problem in the last 6 months where you did not have access to dental care?: No Was dental information given to patient?: Patient has dentist HPI PE HPI Details 69-year-old male with diet-controlled di abetes mellitus, dyslipidemia, here today for his physical exam has been feeling well with no complaints at present time [facility] Medical History Diverticulosis Hx of adenomatous polyp of colon Tubular adenoma of colon Dyslipidemia Controlled diabetes mellitus type II without complication Surgical History H/O colonoscopy Hx of vasectomy Family History Father Non-Hodgkins lymphoma Psoriasis Paternal Uncle Non-Hodgkins lymphoma Social History Household Members: Spouse Housing: House Alcohol intake: former Patient Tobacco Use Status: Former Tobacco user Tobacco use type: Cigar e-Cigarette/Vaping Use: Never Used service: No Current occupational status: retired Cognitive needs: No Hearing needs: No Vision needs: Yes Questionnaire PHQ-9 Over the last 2 weeks, how often have you been bothered by any of the following problems? 1. Little interest or pleasure in doing things: not at all 2. Feeling down, depressed, or hopeless: not at all 3. Trouble falling or staying asleep, or sleeping too much: not at all 4. Feeling tired or having little energy: not at all 5. Poor appetite or overeating: not at all 6. Feeling bad about yourself - or that you are a failure or have let yourself or your family down: not at all 7. Trouble concentrating on things, such as reading the newspaper or watching television: not at all 8. Moving or speaking so slowly that other people could have noticed. Or the opposite - being so fidgety or restless that you have been moving around a lot more than usual: not at all 9. Thoughts that you would be better off or of hurting yourself in some way: not at all Total score: 0 Source: Developed by Drs. Victoriano Mcghee, Josefina Escobar, Chavez Francis and colleagues, with an educational ana from [employer]. Thrive Questionnaire Date Thrive assessed: 08/16/24 I am a: Patient What is your living situation today?: I have a steady place to live Within the past 12 months, did the food you bought not last and you didn't have the money to get more?: Never true Within the past 12 months, did you worry whether your food would run out before you got money to buy more?: Never true Do you have trouble paying for medicines?: No Do you have trouble getting transportation to medical appointments?: No Do you have trouble paying your heating and electricity bill?: No Do you have trouble taking care of your child, family member or friend?: No Do you have trouble with day-to-day activities such as bathing, preparing meals, shopping, managing finances, etc.?: No Are you currently unemployed and looking for a job?: No Are you interested in more education?: No Please select the resources that you would like help with: None Currently or been in a relationship where the following occur: No concerns reported THRIVE Score: 0 AUDIT C Alcohol Use Questionnaire (AUDIT-C) 1. How often do you have a drink containing alcohol?: 2-3 times a week 2. How many drinks containing alcohol do you have on a typical day when you are drinking?: 1 or 2 3. How often do you have six or more drinks on one occasion?: Never Total Score: 3 TAYE-7 AMB Questionnaire TAYE-7 Date TAYE - 7 assessed: 09/15/22 Feeling nervous, anxious, or on edge: 0 = Not at all Not being able to stop or control worryin = Not at all Worrying too much about different things: 0 = Not at all Trouble relaxin = Not at all Being so restless that it is hard to sit still: 0 = Not at all Becoming easily annoyed or irritable: 0 = Not at all Feeling afraid as if something awful might happen: 0 = Not at all Total TAYE-7 score (0-4 normal; 5-9 mild; 10-14 moderate; 15-21 severe): 0 Source: Developed by Drs. Victoriano Mcghee, Josefina Escobar, Chavez Francis and colleagues, with an educational ana from [employer]. Review of Systems Const Denies body aches, Denies fatigue, Denies fever(s), Denies headache(s) and Denies weakness Eyes Details: goes to [facility] with retinopathy screening Denies change in vision ENT Denies dizziness, Denies headache(s), Denies nasal congestion and Denies nasal discharge Card Denies chest pain, Denies lightheadedness, Denies palpitations and Denies dyspnea Resp Denies chest congestion, Denies cough, Denies dyspnea and Denies wheezing GI Denies abdominal pain, Denies change in bowel habits and Denies heartburn Denies hematuria, Denies difficulty urinating, Denies dysuria, Denies urinary frequency and Denies urinary urgency Musc Reports no additional complaints Skin/Breast Denies lesions and Denies rash Neuro Denies dizziness, Denies headache(s) and Denies weakness Psych Reports no additional complaints Endo Denies fatigue, Denies polydipsia, Denies polyuria and Denies palpitations Meng/Lymph Denies easy bruising Aller/Immun Denies seasonal rhinorrhea and Denies wheezing Physical exam (Primary Care) Vital Signs: Last Vital Signs Temp 97.8 F 08/26/25 08:17 Pulse 95 08/26/25 08:17 Resp 16 08/26/25 08:17 BP 126/64 08/26/25 08:17 Pulse Ox 98 08/26/25 08:17 Oxygen Delivery Method Room Air 08/26/25 08:17 BMI result Body Mass Index 24.4 Tobacco/Smoking Status: Tobacco use Status Tobacco use date assessed 08/26/25 08/26/25 08:18 Patient Tobacco Use Status Former Tobacco user 08/26/25 08:18 Tobacco use type Cigar 08/26/25 08:18 e-Cigarette/Vaping Use Never Used 08/26/25 08:18 PHQ-9: PHQ-9 Score PHQ-9: Total score 0 08/26/25 08:29 Thrive Assessment: Date of Thrive Assessment Date Thrive assessed 08/16/24 08/26/25 08:18 Currently or been in a relationship where the following occur: No concerns reported Const Other: Alert oriented x3 no acute distress noted HENMT Ears: hearing grossly normal bilaterally, external ears normal and EAC's normal General nose exam: Normal external nose present and No nasal discharge present Mouth: Normal oral and palatal mucosa present, oropharynx normal and moist mucous membranes Eyes General: appearance normal, both eyes and all related structures Eyelids: Yes eyelids normal Conjunctivae: conjunctivae normal Pupils: Equal, round and reactive pupils present EOM: EOMs intact bilaterally Neck Neck: Yes full ROM, Yes no lymphadenopathy and Yes supple Chest Chest palpation & inspection: normal inspection of the chest and normal palpation of entire chest wall Resp Effort & Inspection: normal respiratory effort and able to speak in complete sentences Auscultation: clear to auscultation bilaterally Cardio Rate: regular rate Rhythm: regular rhythm Heart sounds: S1 normal heart sound present and S2 normal heart sound present GI Inspection: Yes other (Diastasis recti) Palpation (GI): Soft to palpation, nontender, no guarding and no masses Male General Exam: Yes normal external exam Back/Spine/Pelvis Cervical Spine: normal cervical lordosis and cervical ROM normal Thoracic/Lumbar Spine: thoracic and lumbar spine normal to inspection and thoraco-lumbar ROM normal Skin General skin exam: no rashes or lesions noted Neuro General: gait normal, tone normal, moves all extremities, Normal light touch and pain sensation and CN's II-XI intact bilaterally Cranial nerves: Yes Equal, round and reactive pupils present Extrem General: Yes full ROM, Yes no joint enlargement, Yes no clubbing, cyanosis or edema, Yes no calf tenderness and Yes normal gait Psych Appearance: grossly normal Mental Status: mental status grossly normal Speech and movement: Normal speech and movement present Affect: normal affect Coding Level of Care Code Est Pt Prev Care >65y(29180) Diagnoses Annual visit for general adult medical examination with abnormal findings Z00. Dyslipidemia E78.5 Controlled diabetes mellitus type II without complication E11.9 Hx of adenomatous polyp of colon Z86.0101 Assessment & Plan Assessment & Plan (1) Annual visit for general adult medical examination with abnormal findings: Code(s): Z00. - Encounter for general adult medical examination with abnormal findings Plan: Will check appropriate labs. Continue regular dental visit every 6 months and regular eye exams, yearly [facility]. Take adequate calcium in diet and vitamin-D 3 at 2000 IU per cap once a day, in addition to weight- bearing exercises to help maintain good muscle tone and weight control. Instructed to do self-testicular exam check for any mass. Up-to-date with his vaccinations but does not want to get the COVID booster order RSV vaccine. Up-to-date with his screening colonoscopy done [address] Jamison repeat due again in 2028 (2) Dyslipidemia: Code(s): E78.5 - Hyperlipidemia, unspecified Category: Medical Plan: Continue with the adherence to healthy eating habits, last fasting lipids showed elevated LDL cholesterol repeat fasting lipid panel ordered (3) Controlled diabetes mellitus type II without complication: Comment: diet control Code(s): E11.9 - Type 2 diabetes mellitus without complications Category: Medical Plan: Diabetes mellitus diet-controlled, ordered a hemoglobin A1c and urine microalbumin today. Up-to-date with his diabetes retinopathy screening, [facility] requested copy of last office visit (4) Hx of adenomatous polyp of colon: Code(s): Z86.0101 - Personal history of adenomatous and serrated colon polyps Category: Medical Plan: Last colonoscopy was August 2024 with removal of a tubular adenoma polyp. Sees Dr. Jamison, repeat colonoscopy due again in 2028 Orders: Orders Lipid Panel Today E11.9 - Type 2 diabetes mellitus without complications, E78.5 - Hyperlipidemia, unspecified, Z00.01 - Encounter for general adult medical examination with abnormal findings, Z12.5 - Encounter for screening for malignant neoplasm of prostate, Z86.0101 - Personal history of adenomatous and serrated colon polyps Microalbumin, Random (w Creat) Today E11.9 - Type 2 diabetes mellitus without complications, E78.5 - Hyperlipidemia, unspecified, Z00.01 - Encounter for general adult medical examination with abnormal findings, Z12.5 - Encounter for screening for malignant neoplasm of prostate, Z86.0101 - Personal history of adenomatous and serrated colon polyps Hemoglobin A1c Today E11.9 - Type 2 diabetes mellitus without complications, E78.5 - Hyperlipidemia, unspecified, Z00.01 - Encounter for general adult medical examination with abnormal findings, Z12.5 - Encounter for screening for malignant neoplasm of prostate, Z86.0101 - Personal history of adenomatous and serrated colon polyps PSA,Total (Free>4and<10) Today E11.9 - Type 2 diabetes mellitus without complications, E78.5 - Hyperlipidemia, unspecified, Z00.01 - Encounter for general adult medical examination with abnormal findings, Z12.5 - Encounter for screening for malignant neoplasm of prostate, Z86.0101 - Personal history of adenomatous and serrated colon polyps Basic Metabolic Panel Fasting Today E11.9 - Type 2 diabetes mellitus without complications, E78.5 - Hyperlipidemia, unspecified, Z00.01 - Encounter for general adult medical examination with abnormal findings, Z12.5 - Encounter for screening for malignant neoplasm of prostate, Z86.0101 - Personal history of adenomatous and serrated colon polyps Aspartate Amino Transferase Today E11.9 - Type 2 diabetes mellitus without complications, E78.5 - Hyperlipidemia, unspecified, Z00.01 - Encounter for general adult medical examination with abnormal findings, Z12.5 - Encounter for screening for malignant neoplasm of prostate, Z86.0101 - Personal history of adenomatous and serrated colon polyps Hemoglobin and Hematocrit Today E11.9 - Type 2 diabetes mellitus without complications, E78.5 - Hyperlipidemia, unspecified, Z00.01 - Encounter for general adult medical examination with abnormal findings, Z12.5 - Encounter for screening for malignant neoplasm of prostate, Z86.0101 - Personal history of adenomatous and serrated colon polyps Alanine Aminotransferase Today E11.9 - Type 2 diabetes mellitus without complications, E78.5 - Hyperlipidemia, unspecified, Z00.01 - Encounter for general adult medical examination with abnormal findings, Z12.5 - Encounter for screening for malignant neoplasm of prostate, Z86.0101 - Personal history of adenomatous and serrated colon polyps
== END 2025-08-26 09:08 | disposition home or self-care (01) ==
LOC: HO.HMCC 08:03
PROVIDERS: PCP Internal Medicine; Visit Provider Internal Medicine
DX: Z00.01 Encounter for general adult medical examination with abnormal findings (principal); E78.5 Hyperlipidemia, unspecified; E11.9 Type 2 diabetes mellitus without complications; Z86.0101 Personal history of adenomatous and serrated colon polyps

== ENCOUNTER 2025-08-26 08:02 | Outpatient (REF) | payer MEDICARE, SELFPAY ==
[2025-08-26 10:39] LABS: Hematocrit 40.5 % (42.0-52.0); Hemoglobin 14.2 g/dl (14.0-18.0)
[2025-08-26 11:07] LABS: Alanine Aminotransferase 29 U/L (0-40); Anion Gap 15 (12-20); Aspartate Amino Transferase 26 U/L (5-37); Blood Urea Nitrogen 11 mg/dL (9-16); Calcium 9.6 mg/dL (8.4-10.2); Carbon Dioxide 28 mmol/L (22-29); Chloride 102 mmol/L (96-108); Cholesterol 211 mg/dL (<200); Estimated Glomerular Filt Rate > 60; HDL Cholesterol 56 mg/dL (>40); Potassium 4.0 mmol/L (3.3-5.1); Sodium 141 mmol/L (135-145); Triglycerides 238 mg/dL (<150)
[2025-08-26 11:25] LABS: PSA,Total (Free>4and<10) 0.31 ng/mL (0.00-4.00)
[2025-08-26 15:09] LABS: Microalbum/Creatinine Ratio Ur 6.2 ug/mg cr (<30)
== END 2025-08-26 08:03 | disposition home or self-care (01) ==
LOC: HO.HMGCLDS 08:02
PROVIDERS: PCP Internal Medicine; Visit Provider Internal Medicine
DX: Z00.01 Encounter for general adult medical examination with abnormal findings (principal); Z12.5 Encounter for screening for malignant neoplasm of prostate; E78.5 Hyperlipidemia, unspecified; E11.9 Type 2 diabetes mellitus without complications; Z86.0101 Personal history of adenomatous and serrated colon polyps
CPT/HCPCS: 36415; 80048; 80061; 82043; 82570; 83036; 84153; 84450; 84460; 85014; 85018; 96127; 99212